=== PATIENT | male | born 1990 ===

== ENCOUNTER 2022-10-30 21:35 | Emergency (ER) | payer MEDICAID ==
[2022-10-30 21:58] LABS: BASOPHILS ABSOLUTE AUTO 0.05 K/mm3 (0.01-0.08); BASOPHILS PERCENT AUTO 0.6 % (0.1-1.2); EOSINOPHILS PERCENT AUTO 2.6 (0.8-7.0); HEMATOCRIT 43.3 % (40.1-51.0); IMMATURE GRAN ABSOLUTE AUTO 0.02 K/mm3 (0.00-0.10); IMMATURE GRAN PERCENT AUTO 0.3 % (<=1.0); LYMPHOCYTES PERCENT AUTO 33.7 % (21.8-53.1); MEAN CORPUSCULAR HEMOGLOBIN 29.5 pg (25.7-32.2); MEAN CORPUSCULAR HGB CONC 34.6 g/dl (32.2-35.5); MEAN CORPUSCULAR VOLUME 85.2 fl (79.0-92.2); MEAN PLATELET VOLUME 10.8 fl (9.4-12.3); MONOCYTES ABSOLUTE AUTO 0.84 K/mm3 (0.30-0.82); MONOCYTES PERCENT AUTO 10.9 % (5.3-12.2); NEUTROPHILS ABSOLUTE AUTO 4.01 K/mm3 (1.78-5.38); NEUTROPHILS PERCENT AUTO 51.9 % (34.0-67.9); PLATELET COUNT,PLT 317 K/mm3 (163-337); RED BLOOD CELL COUNT 5.08 M/mm3 (4.63-6.08); WHITE BLOOD CELL COUNT,WBC 7.72 K/mm3 (4.23-9.07)
[2022-10-30 22:24] LABS: A/G RATIO 1.4 (1-2); ANION GAP 12.9 (5-15); BILIRUBIN TOTAL 0.4 mg/dL (0.2-1.0); CALCIUM 8.4 mg/dL (8.5-10.1); CREATININE 0.9 mg/dL (0.7-1.3); EST CRCL DRUG DOSING (CG) 103.95 mL/min; ETHANOL BLOOD MEDICAL 0.32 gm% (0.00); POTASSIUM,K 3.9 mEq/L (3.5-5.1); PROTEIN TOTAL,TP 6.8 g/dl (6.4-8.2)
== END 2022-10-30 22:05 | disposition left against medical advice (07) ==
LOC: JD.ED 21:35
DX: F10.10 Alcohol abuse, uncomplicated (principal)
CPT/HCPCS: 36415; 80053; 80307; 85025; 99282; 99284